=== PATIENT | male | born 1990 | race Caucasian/White ===

== ENCOUNTER 2021-06-30 07:50 | Emergency (ER) | payer OTHER, SELFPAY ==
[2021-06-30 07:56] VITALS: BP 126/75; PULSE 79; RESP 15; TEMP 36.6; O2SAT 98; BMI 27.4
--- NOTE | 2021-06-30 08:00 | ED_ITS ---
HPI - General Adult General: Chief complaint: Extremity Injury, Lower Stated complaint: L FOOT INJURY Time Seen by Provider: 06/30/21 07:52 History of Present Illness: HPI narrative: Patient is a 30-year-old male with history of left foot fracture s/p internal fixation of the foot in February presenting to the emergency room for evaluation acute worsening left foot inability to bear weight since 5 PM yesterday. Patient was moving a ladder when he twisted his left foot. Since then, patient reports midfoot/forefoot pain. Inability to bear weight weight except on his left heel. No complaints of ankle, leg pain. Patient denies any other focal injuries. Onset:1 day ago Duration:1 day Location:work Severity:moderate Review of Systems Narrative: Constitutional: No fever, no chills. HEENT: No vision changes CV: No chest pain, no palpitations PULM: no cough, no dyspnea. GI: No abdominal pain, no N/V/D. : No dysuria MSKEL: No muscle pain, +L dorsal 2nd/3rd forefoot tenderness to palpation, no midfoot tenderness, L foot compartment intact, no ankle tenderness, no tib/fib tenderness, 2+ DP/PT pulses on the L foot, cap refill < 2 seconds, neurovascular exam of the L foot intact. SKIN: No new rashes, no lesions. NEURO: No headache, no focal weakness. HEME: No visible bruises PSYCH: Normal mood Physical Exam Narrative: EXAM NARRATIVE: Head: Atraumatic Eyes: PERRL, conjunctiva without injection ENT: Mucous membrane moist NECK: Supple, ROM intact LUNGS: LCTAB, no crackles/rhonchi CV: RRR ABDOMEN: Soft, nontender in all quadrants EXTREMITY: Normal ROM, +mild L forefoot tenderness SKIN: No rash or erythema NEURO: Awake and alert, no focal motor deficits PSYCH: Normal mood and affect Course Vital Signs: Vital signs: Vital Signs Temperature 97.8 F 06/30/21 10:11 Pulse Rate 79 06/30/21 07:56 Respiratory Rate 15 06/30/21 10:11 Blood Pressure 126/75 06/30/21 07:56 Pulse Oximetry 98 06/30/21 10:11 MDM - General Adult MDM Narrative: Medical decision making narrative: 30-year-old male presents emergency with complaints of left foot pain after twisting his foot since yesterday. Patient is only able to bear weight on the heel. On exam, patient has mild second/third forefoot tenderness to palpation. Rest exam within normal limit. X-rays did not show any signs of acute fracture or metal implant disruption. Patient continues to have persistent pain. I have given patient a walking boot instructed to follow-up in 1 week for repeat x-ray to ensure that there is not any occult fracture at this time. No suspicion for Lisfranc fracture given only forefoot tenderness to palpation. I have offered patient follow-up with our specialists here at [place]. However patient tells me that he will go back to [facility] tomorrow. I have given patient strict follow-up with PCP in 1 week for repeat x-ray. Patient will be going home with a walking boot at this time. Patient reassures me that he will follow-up with his specialist and a primary care provider for further evaluation of symptoms in 1 week. Disposition: Discharge. Patient counseled regarding diagnostic impression, treatment plan. Patient given ED strict return precautions to return for continuation, worsening, or development of new symptoms. Instructed to f/u w/ PCP regarding symptoms today. Patient verbalized understanding. Imaging Data^: Other Imaging: Radiologist's impression: [place] [id number] [facility].[place], [place] [address]DPcc ReportSigned Patient: Catarino Carrion #: [id number]: [id number]#:[id number]/Sex: 30 / MADM Date: 06/30/21Loc: ERRoom/Bed:Attending Dr: Ordering Provider/Ordering MD: Autumn Nunez MD Date of Service: 06/30/21 Procedure(s): XR foot LT min 3V* [id number] Accession Number(s): [id number] Report Number: [id number] WS: [id number] Left foot, 3 views, 06/30/2021 Clinical Data: eval fx( prior plates ) Comparison: None. Findings: No new fractures or dislocations are seen. No bone destruction or erosion is noted. There is a fusion of the base of the left first metatarsal and first cuneiform with plate and screws. There is also fusion of the base of the left second metatarsal and second cuneiform with plate and screws.There is an orthopedic plate on the lateral aspect of the base of the left third metatarsal. There is osteoarthritis of the left first MTP joint. XR/XR foot LT min 3V* [id number] Impression: 1. Negative for new fractures. 2. Fusion of the bases of the left first and second metatarsals. 3. 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 Dictated By:Gabriella Gar MDSigned By:Gabriella Gar MDSigned Date/Time:06/30/21815DD/ 1 Discharge Plan Discharge Patient Disposition: Home Clinical Impression: Foot pain Condition: Stable Discharge Orders: Discharge ED (Routine); Ordered 06/30/21 Ordered By: Autumn Nunez Other Ambulatory Orders: DME: Miscellaneous (Order) Location: None Selected Ordered By: Autumn Nunez Discharge Diet: Advance as tolerated Discharge Activity: Resume usual activity Patient Instructions: Arthralgia (ED) Activity Restrictions/Additional Instructions: Come back to the emergency room you have any new or concerning complaints. Please use your walking boot for 1 week until you are cleared by a primary care provider or a presidential support specialist with repeat x-ray. You will need a repeat x-ray to ensure that there is no occult fracture given previous injuries to your foot and the fact occult fracture may not show up on today's xray. Coding Level of Care Code ED [employer] Director Of [employer] for [employer]
--- NOTE | 2021-06-30 08:00 | XR_ITS ---
WS: [id number] Left foot, 3 views, 06/30/2021 Clinical Data: eval fx( prior plates ) Comparison: None. Findings: No new fractures or dislocations are seen. No bone destruction or erosion is noted. There is a fusion of the base of the left first metatarsal and first cuneiform with plate and screws. There is also fu ami of the base of the left second metatarsal and second cuneiform with plate and screws.There is an orthopedic plate on the lateral aspect of the base of the left third metatarsal. There is osteoarthr itis of the left first MTP joint. XR/XR foot LT min 3V* [id number] Impression: 1. Negative for new fractures. 2. Fusion of the bases of the left first and second metatarsals. 3. 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
[2021-06-30] MEDS: acetaminophen 500 mg Tablet PO (08:11)
[2021-06-30 10:11] VITALS: RESP 15; TEMP 36.6; O2SAT 98
== END 2021-06-30 10:11 | disposition home or self-care (01) ==
LOC: ER 08:44
PROVIDERS: Emergency Provider Emergency Medicine
DX: M79.672 Pain in left foot (principal)
CPT/HCPCS: 73630; 99283